=== PATIENT | male | born 1990 | race Caucasian/White ===

== ENCOUNTER 2021-01-28 18:49 | Emergency (ER) | payer SELFPAY ==
[~2021-01-28] VITALS: Ht 182.9 cm; Wt 136.1 kg
[2021-01-28 20:01] LABS: HEMOGLOBIN 16.4 gm/dl (14.0-17.5); RED BLOOD COUNT 5.62 M/UL (4.20-5.50); WHITE BLOOD COUNT 11.3 K/UL (4.5-11.0)
[2021-01-28 20:26] LABS: BUN/CREATININE RATIO 14 (0-10)
== END 2021-01-28 23:40 | disposition home or self-care (01) ==
LOC: ER1 18:49
PROVIDERS: Emergency Medicine
DX: U07.1 COVID-19 (principal); Z23 Encounter for immunization; I10 Essential (primary) hypertension
CPT/HCPCS: 70450; 80053; 82550; 82553; 84484; 85025; 85652; 86140; 93005; 96374; 99284; J1885; M0243; U0002